=== PATIENT | female | born 1935 | race Caucasian/White ===

== ENCOUNTER 2018-11-12 13:22 | Inpatient (IN) | payer MEDICARE, OTHER ==
[2018-11-12 14:23] LABS: Troponin I 0.011 ng/mL (< 0.028)
[2018-11-12] MEDS ORDERED: hydrALAZINE 20 MG/ML VIAL SLOW IVP PRN (16:27)
[2018-11-12 16:56] VITALS: BMI 27.7
--- NOTE | 2018-11-12 17:52 | CON ---
DATE OF CONSULTATION: 11/12/2018 REASON FOR CONSULTATION: Sinus pauses. HISTORY OF PRESENT ILLNESS: Ms. Koch is a pleasant 83-year-old white female, who comes to the hospital for near syncope. She has been noticing episodes of near syncope for the past 1 or 2 months. She states that about 10 days ago on October 31, she was started on flecainide for her atrial flutter. She had her Toprol, which was at 100 b.i.d. cut in half at 100 a day only. She started noticing after that episodes of near syncope and she thought it was related to having cut back on the metoprolol, so she restarted the metoprolol at b.i.d. dosing full dose. She comes in today showing long pauses, presyncopal during the pauses. So, Cardiology is being consulted for this. PAST MEDICAL HISTORY: 1. Atrial fibrillation/flutter. 2. Hypertension. PAST SURGICAL HISTORY: 1. Cholecystectomy. 2. Hernia repair. 3. Hysterectomy. FAMILY HISTORY: Heart failure in mother with CVAs. ALLERGIES: CODEINE, FOSAMAX, LYRICA, AND PENICILLINS. OUTPATIENT MEDICATIONS: 1. Metoprolol tartrate 100 mg twice a day. 2. Clonidine 0.1 mg daily. 3. Albuterol. 4. Aspirin 81 a day. 5. Alprazolam. 6. Eliquis 5 mg twice a day. 7. Flecainide 50 mg twice a day. 8. Hydrochlorothiazide 12.5 mg daily. 9. Culturelle. 10. Nifedipine 30 mg a day. 11. Docusate. 12. Milk of magnesia. SOCIAL HISTORY: No alcohol, tobacco, or drugs. REVIEW OF SYSTEMS: A 12-point review of systems was done and was found to be negative unless stated in the history of present illness. PHYSICAL EXAMINATION: VITAL SIGNS: Temperature 97.9, pulse 110, respiratory rate 22, blood pressure 205/118, and saturating 99% on room GENERAL: Awake, alert, and oriented x3. No distress. HEENT: Normocephalic and atraumatic. NECK: Supple. LUNGS: Clear. CARDIOVASCULAR: S1 and S2. No S3 or S4. No murmurs. Irregularly irregular heart rate in the low 100s. ABDOMEN: Soft. Positive bowel sounds. EXTREMITIES: No edema. SKIN: Warm and dry. LABORATORY DATA: Laboratory work was reviewed. Troponin is negative x1. Electrolytes were reviewed as well. ASSESSMENT: 1. Tachy-eliana syndrome. 2. Atrial fibrillation. PLAN: 1. Hold clonidine, metoprolol, flecainide and Eliquis. 2. Plan on doing a permanent pacemaker in the morning. 3. We spoke with her about in length of the risks and benefits of the procedure and she agrees to proceed. Dr. Cannon will probably perform this procedure. 4. Watch in the [facility] overnight. No need for temporary pacemaker at this time as she has been dealing with this presyncopal episodes for at least the last month or 2. It was thought to be related to rapid atrial fibrillation; however, it is probably related to just tachy-eliana syndrome. 5. We will follow. Job ID: [id number]
[2018-11-12] MEDS ORDERED: Docusate 100 MG CAP PO SCH (21:00)
--- NOTE | 2018-11-12 22:39 | HP ---
CHIEF COMPLAINT: Lightheadedness and near blackouts. HISTORY OF PRESENT ILLNESS: The patient is an 83-year-old female, who presented by EMS to [facility] Emergency Room after she started having some spells of dizziness and weakness while eating breakfast. The EMS was called and she was transferred to the emergency room where she was found to have long pauses on her cardiac function and pacer pads were placed for external pacing if necessary and the patient was transferred to the emergency room in [facility] for admission and management of her problem. Apparently, she had high blood pressure and her primary care physician, Dr. Rodríguez was increasing her metoprolol dose and the last dose was doubled approximately a month ago and she was on 100 mg twice a day. She was also on Eliquis and aspirin since she is in chronic atrial fibrillation with controlled ventricular rate. Her last echocardiogram, which was done in May 2018, showed LVEF estimated at 64%. During today's episode, she denied any chest pain, shortness of breath, loss of consciousness, nausea, vomiting, diarrhea, but she noticed that when she had the spell, she was almost losing her vision, but it never happened all the way. She did not lose consciousness in the emergency room in [place] and she was worked up. PAST MEDICAL HISTORY: Positive for; 1. Intestinal obstruction. 2. Osteoarthritis. 3. Varicose veins. 4. Depression. 5. Cholelithiasis. 6. Rotator cuff tear. 7. Hypertension. 8. Chronic atrial fibrillation. 9. Anxiety. PAST SURGICAL HISTORY: 1. Diagnostic arthroscopy with partial medial meniscectomy, resection of loose body in the left knee. 2. Cataract surgery, bilateral. 3. Cholecystectomy. 4. Colectomy. 5. Foot surgery. 6. Hernia repair. 7. Multiple injections in her right and left knee of Synvisc and cortisone. SOCIAL HISTORY: She never smoked. She does not drink alcohol. She does not use any illicit drugs. FAMILY HISTORY: Her father at the age of 44 of sudden cardiac . Mother was 88 and she had a massive CVA at 86, then she develops CHF. Medical power of deputy prosecuting attorney is Carolyn Rasmussen. ALLERGIES: CODEINE, FLAGYL, FOSAMAX, LYRICA, AND PENICILLINS. REVIEW OF SYSTEMS: CONSTITUTIONAL: Negative for fever and chills. ENT: Negative for nasal congestion and epistaxis. EYES: Negative for eye pain. Positive for near blackouts with episodes. CARDIOVASCULAR: Negative for palpitations. Negative for chest pain. RESPIRATORY: Negative for shortness of breath and cough. GASTROINTESTINAL: Negative for nausea and vomiting. GENITOURINARY: Negative for hematuria or dysuria. SKIN: Negative for rash or erythema. PSYCHIATRIC: Negative for homicidal or suicidal ideations. PHYSICAL EXAMINATION: VITAL SIGNS: Blood pressure is 150/111, pulse is 83, respiratory rate 22, temperature 97.9, O2 saturation is 97% on room air. HEENT: Head is atraumatic and normocephalic. Eyes are PERRLA. Sclerae nonicteric. Oral mucosa is moist. NECK: Supple. No lymphadenopathy. Thyroid is not palpable. LUNGS: Clear. HEART: S1, S2. Irregularly irregular. No S3. No S4. No any murmur. ABDOMEN: Soft, nontender, obese. Bowel sounds are present. No organomegaly. EXTREMITIES: No clubbing, cyanosis, or edema. She has diminished pulses on both tibialis posterior and dorsalis pedis arteries similar bilaterally. NEUROLOGIC: She is alert and oriented x4. There is no any motor or sensory deficits present. Cranial nerves are intact. Cerebral function within normal limits. LABORATORY DATA: Showed white count of 6.6, hemoglobin 15.1, hematocrit 45.3, platelet count 189,000. Urinalysis, trace of leukocyte esterase, squamous epithelial cells, otherwise within normal limits. Chemistry is within normal limits. Magnesium 2.1. Troponin I less than 0.001. TSH 1.69. DIAGNOSTIC STUDIES: X-ray of the chest showed no acute cardiopulmonary process. EKG showed atrial fibrillation with several pauses, which are lasting up to 10-15 seconds. IMPRESSION: 1. Cardiac pauses, most likely related to a big dose of beta jessica; this was metoprolol tartrate, I believe 100 mg twice a day. All this could be underlying sick sinus syndrome. 2. Atrial fibrillation. 3. High blood pressure, difficult to control. According to the medical records we received, the patient had several visits with the primary care physician, Dr. Rodríguez, and the blood pressure was one of the main issues that they were trying to take care of. 4. History of intestinal obstruction. 5. Varicose veins. 6. Depression. 7. History of diverticulitis. 8. Cholelithiasis. 9. Osteoarthritis. 10. History of rotator cuff tear. PLAN: Admission to [facility]. Condition is guarded. IV Hep-Lock. Heart healthy diet. Cardiology consultation, Dr. Corona came and saw the patient in the emergency room. He is planning to put the pacemaker tomorrow. In the mean time, we have pacer pads on and ready to use it as needed. We will reconcile her home medications and run ultrasound on her kidneys. This might explain why her blood pressure is still running high. We will have blood pressure medications to be revisited and make some adjustments to have better control of her high blood pressure. She will be on SCDs and no Lovenox since she is on Eliquis. Job ID: [id number]
[2018-11-13] MEDS ORDERED: Clindamycin/D5W 900 mg/50 ml Premix Bag ONE (07:49)
[2018-11-13] MEDS ORDERED: Lidocaine 1% (PF) 30 ML VIAL ONE (07:49)
[2018-11-13] MEDS ORDERED: Levofloxacin 500 mg/D5W 100 ml Premix Bag ONE (07:49)
[2018-11-13] MEDS ORDERED: Enoxaparin Sodium 40 MG/0.4 ML SYRINGE SC SCH (09:00)
[2018-11-13] MEDS ORDERED: Midazolam HCl 2 mg/2 ml Vial ONE (09:14)
[2018-11-13 10:33] VITALS: BP 119/80
[2018-11-13 10:56] VITALS: TEMP 98
--- NOTE | 2018-11-13 12:01 | RAD ---
PORTABLE CHEST ONE VIEW: Date: 11-13-18 Time: 10:24 a.m. History: Cardiac device placement/replacement. FINDINGS: The heart size is normal. There is a left pacemaker device with bipolar leads in the right atrium and right ventricle. The heart size is normal. The aorta is tortuous. The lungs are well expanded withou t focal areas of consolidation, pneumothoraces or pleural effusions. IMPRESSION: No acute process. POS: OFF
--- NOTE | 2018-11-13 12:23 | ULT ---
ULTRASOUND RENAL DOPPLER DUPLEX: 11/13/2018 HISTORY: An 83-year-old female with uncontrolled hypertension. TECHNIQUE: Anderson-scale images of the bilateral kidneys. Urinary bladder not imaged. Color-flow and spectral analysis of arteries associated with the kidneys. FINDINGS: Right kidney measures 9.5 x 4 x 4.5 cm. Left kidney measures 11 x 4 x 5 cm. Bilateral renal parenchymal thickness and echogenicity are normal. No hydronephrosis. No moderate-sized or large cyst or solid renal mass identified. PEAK SYSTOLIC VELOCITIES: Proximal aorta: 25 cm/s Right renal artery: 20 cm/s Left renal artery: 25 cm/s RENAL ARTERY/AORTA RATIOS: Right: 0.8 Left: 1.0 RESISTIVE INDICES: Right arcuate: Average less than 0.7 Left arcuate: Average 0.6 IMPRESSION: Negative. POS: KAUSHAL
--- NOTE | 2018-11-13 14:07 | CCL ---
PACEMAKER IMPLANTATION: DATE OF PROCEDURE: 11/13/2018. 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 She has episodes of intermittent atrial fibrillation and atrial flutter and an atrial thera py device was implanted. PROCEDURE: She was taken to the cardiac orthodontic lab technician where she underwent the procedure without any difficulties or c omplications. She was implanted with a dual-chamber pacemaker from [employer] with screw-in leads, 1 in the atrium and 1 in the ventricle. She was implanted with an Beena-XD dual-chamber pacemaker whic h is MRI compatible. There were no difficulties or complications encountered. The pacemaker was set with the upper rate of 120 and the lower rate was set at 60. POS: CUONG
[2018-11-13] MEDS ORDERED: Apixaban 5 MG TAB PO SCH (21:00)
[2018-11-13] MEDS ORDERED: Flecainide 50 MG TAB PO SCH (21:00)
[2018-11-13] MEDS ORDERED: Metoprolol Tartrate 50 MG TAB PO SCH (21:00)
--- NOTE | 2018-11-13 21:38 | DIS ---
DATE OF ADMISSION: 11/12/2018 DATE OF DISCHARGE: 11/13/2018 PRIMARY CARE PROVIDER: Dr. Sammy Rodríguez. DISCHARGE DIAGNOSES: 1. Sinus pauses. 2. Presyncope. CONDITION OF PATIENT ON THE DAY OF DISCHARGE: Stable. I assessed Ms. Koch on the day of discharge. She denies any chest pain or shortness of breath. Vital signs are stable. S1 and S2 are heard, regular. Lungs are clear to auscultation bilaterally. CONSULTATIONS DURING THIS HOSPITALIZATION: Cardiology, Ambrose Corona MD DISCHARGE MEDICATIONS: 1. ProAir HFA one puff every 4 hours as needed. 2. Xanax 0.25 mg at bedtime as needed. 3. Apixaban 5 mg two times a day. 4. Aspirin 81 mg daily. 5. Calcium carbonate 500 mg daily. 6. Vitamin D3, 1000 units daily. 7. Catapres 0.1 mg at bedtime. 8. Colace 300 mg at bedtime. 9. Flecainide 50 mg 2 times a day. 10. Glucosamine/chondroitin sulfate 1 tablet daily. 11. Hydrochlorothiazide 12.5 mg daily. 12. Lactobacillus one capsule daily. 13. Milk of magnesia p.r.n. 14. Procardia XL 30 mg daily. 15. Lopressor dose was decreased to 50 mg 2 times a day. HOSPITAL COURSE: Ms. Koch is a pleasant 83-year-old lady, who was admitted to [facility] on November 12, 2018, for sinus pauses and presyncopal episodes. Please refer to Dr. Lopez's history and physical note for further details. She was seen by Cardiology Service. On November 13, she had permanent pacemaker placed. Following the placement of pacemaker, she improved dramatically in terms of symptoms. Her metoprolol dose was decreased to 50 mg 2 times a day and she is being discharged home on the rest of her pre-admission home medications. She also had renal ultrasound during this hospitalization for uncontrolled hypertension. It was a negative study. Many thanks for allowing me to participate in your patient's care. Please feel free to contact me with any questions or concerns. DISCHARGE DESTINATION: Home. Total amount of time spent coordinating this discharge: 32 minutes. Job ID: [id number]
== END 2018-11-13 15:20 | disposition home or self-care (01) | DRG 244 ==
LOC: ERS 13:22 → IMCU/EMU 16:53
PROVIDERS: ADMIT Internal Medicine; ATTEND Internal Medicine
PROC: 0JH606Z Insertion of Pacemaker, Dual Chamber into Chest Subcutaneous Tissue and Fascia, Open Approach (ICD-10-PCS; principal; 2018-11-12)
PROC: 02H63JZ Insertion of Pacemaker Lead into Right Atrium, Percutaneous Approach (ICD-10-PCS; 2018-11-12)
PROC: 02HK3JZ Insertion of Pacemaker Lead into Right Ventricle, Percutaneous Approach (ICD-10-PCS; 2018-11-12)
DX: I49.5 Sick sinus syndrome (principal); I48.91 Unspecified atrial fibrillation; I10 Essential (primary) hypertension; I83.90 Asymptomatic varicose veins of unspecified lower extremity
CPT/HCPCS: 33208; 36415; 71045; 76700; 76770; 84484; 93005; 93798; 99152; 99153; C1785; C1898; J1956; J2001; J2250; J3370; J3490